=== PATIENT | male | born 1945 | race Caucasian/White ===

== ENCOUNTER 2022-07-08 21:55 | Emergency (ER) | payer OTHER ==
[2022-07-08 21:59] VITALS: BMI 22.4
[2022-07-09 00:01] LABS: BASO % 1.1 % (0-2.0); EOS % 2.6 % (0-4.5); HEMATOCRIT 39.8 % (35.4-49); HEMOGLOBIN 13.2 GM/dL (11.7-16.9); LYMPH % 10.3 % (8-40); MCH 32.3 pg (25.7-33.7); MEAN CELL VOLUME 97.8 fl (80-96); MEAN PLT VOLUME 8.1 fl (7.5-11.1); MONO % 9.5 % (3.8-10.2); NEUT % 76.5 % (42.8-82.8); PLATELET COUNT 215 10^3/uL (134-434); RBC 4.07 M/mm3 (4.00-5.60); RDW 14.3 % (11.9-15.9); WHITE BLOOD COUNT 9.7 K/mm3 (4.0-10.0)
[2022-07-09 00:23] LABS: CALCIUM 8.7 mg/dL (8.5-10.1)
[2022-07-09 00:24] LABS: ALBUMIN 3.2 g/dl (3.4-5.0); BLOOD UREA NITROGEN 28.9 mg/dL (7-18)
[2022-07-09 00:27] LABS: CREATININE 1.1 mg/dL (0.55-1.3)
[2022-07-09 00:28] LABS: TOT PROT 6.2 g/dl (6.4-8.2)
[2022-07-09 02:13] VITALS: RESP 18
[2022-07-09 11:23] VITALS: BP 170/66; PULSE 54; TEMP 97.8
== END 2022-07-09 11:35 | disposition home or self-care (01) ==
LOC: JERFT 21:55
DX: R45.1 Restlessness and agitation (principal)
CPT/HCPCS: 36415; 80053; 85025; 93005; 93010; 99284-25